=== PATIENT | female | born 1970 | race African-American/Black ===

== ENCOUNTER 2016-04-02 12:35 | Emergency (ER) | payer SELFPAY ==
[~2016-04-02] VITALS: Ht 154.9 cm; Wt 73.0 kg
[~2016-04-02 12:35] MED LIST: IBUP-1027 PO; IBUP-1060 PO; IBUP200T43 PO; LEVO500T38 PO; OMEP20TA PO; OXYC-323 PO; POT25TAB PO; PROC5TAB14 PO; [UNRECOGNIZED DRUG - CODE] PO
[2016-04-02 13:22] LABS: BASO % 1 % (0-3); EOS % 2 % (0-3); HEMATOCRIT 36.8 % (36.0-47.0); HEMOGLOBIN 12.2 g/dL (12.0-15.5); LYMPH # 1.6 x10^3/uL (1.0-4.8); LYMPH % 32 % (24-48); MEAN CORPUSCULAR HEMOGLOBIN 31 pg (25-35); MEAN CORPUSCULAR HGB CONC 33 g/dL (31-37); MEAN CORPUSCULAR VOLUME 92 fL (79-100); MONO % 7 % (0-9); NEUT % 58 % (31-73); PLATELET COUNT 325 x10^3/uL (140-400); RED BLOOD COUNT 3.99 x10^6/uL (3.50-5.40); RED CELL DISTRIBUTION WIDTH 15.8 % (11.5-14.5); WHITE BLOOD COUNT 5.1 x10^3/uL (4.0-11.0)
--- NOTE | 2016-04-02 13:23 | EKG ---
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
[2016-04-02 13:33] LABS: CREATININE 0.6 mg/dL (0.6-1.0); GFR 131.4; POTASSIUM 4.1 mmol/L (3.5-5.1)
--- NOTE | 2016-04-02 13:36 | RAD ---
Indication: Chest pain. Time of exam 1320 hours. No prior studies are available for comparison. FINDINGS: The heart size is normal. The lungs are clear. No pleural effusion or pneumothorax is identified. The pulmonary vascularity is normal. IMPRESSION: No acute abnormality detected.
[2016-04-02 13:39] LABS: ALBUMIN 3.9 g/dL (3.4-5.0); DIRECT BILIRUBIN 0.1 mg/dL (0.0-0.2); TOTAL BILIRUBIN 0.4 mg/dL (0.2-1.0); TOTAL PROTEIN 8.2 g/dL (6.4-8.2)
[2016-04-02 13:48] VITALS: BP 167/87
[2016-04-02] MEDS ORDERED: HYDR-2666 PO (13:54)
--- NOTE | 2016-04-02 13:54 | PHYS DOC ---
Past Medical History Past Medical History: No Pertinent History Past Surgical History: Other Additional Past Surgical Histo: breast , fibroid removed Alcohol Use: None Drug Use: None Adult General Chief Complaint Chief Complaint: CHEST WALL PAIN HPI HPI 46-year-old female presenting the emergency department today with left-sided chest pain for 4 days. The pain is intermittent without alleviating or exacerbating factors. She denies nausea vomiting or diaphoresis. She denies any cough congestion. She describes the pain as a cramping sensation. She denies hemoptysis, unilateral leg swelling. She denies recent plane ride. She denies personal or family history of DVT. She denies diabetes hypertension hyperlipidemia or smoking history. Review of Systems Review of Systems ROS negative for nausea vomiting fevers chills or cough. All other review of systems is negative unless otherwise noted in history of present illness. Current Medications Current Medications Current Medications Medications (Trade) Dose Ordered Sig/Rios Start Time Stop Time Status Last Admin Dose Admin Acetaminophen/ Hydrocodone Bitart (Lortab 5/325) 2 tab 1X ONCE 04/02/16 14:00 04/02/16 14:01 DC 04/02/16 13:55 2 TAB Allergies Allergies Allergies Coded Allergies Type Severity Reaction Last Updated Verified No Known Drug Allergies 11/09/13 No Physical Exam Physical Exam Constitutional: Well developed, well nourished, no acute distress, non-toxic appearance. HENT: Normocephalic, atraumatic, bilateral external ears normal, oropharynx moist, no oral exudates, nose normal. [] Eyes: PERRLA, EOMI, conjunctiva normal, no discharge. Neck: Normal range of motion, no tenderness, supple, no stridor. [] Cardiovascular:Heart rate regular rhythm, no murmur Lungs & Thorax: Bilateral breath sounds clear to auscultation [] Abdomen: Bowel sounds normal, soft, no tenderness, no masses, no pulsatile masses. Skin: Warm, dry, no erythema, no rash. [] Back: No tenderness, no CVA tenderness. [] Extremities: No tenderness, no cyanosis, no clubbing, ROM intact, no edema. Neurologic: Alert and oriented X 3, normal motor function, normal sensory function, no focal deficits noted. Psychologic: Affect normal, judgement normal, mood normal. [] Current Patient Data Vital Signs Vital Signs Date Time Temp Pulse Resp B/P Pulse Ox O2 Delivery O2 Flow Rate FiO2 04/02/16 13:55 18 100 Room Air 04/02/16 13:48 64 167/87 04/02/16 12:49 98.7 98.7 Lab Values Laboratory Tests Test 04/02/16 13:00 White Blood Count 5.1x10^3/uL (4.0-11.0) Red Blood Count 3.99x10^6/uL (3.50-5.40) Hemoglobin 12.2g/dL (12.0-15.5) Hematocrit 36.8% (36.0-47.0) Mean Corpuscular Volume 92fL (79-100) Mean Corpuscular Hemoglobin 31pg (25-35) Mean Corpuscular Hemoglobin Concent 33g/dL (31-37) Red Cell Distribution Width 15.8% (11.5-14.5) H Platelet Count 325x10^3/uL (140-400) Neutrophils (%) (Auto) 58% (31-73) Lymphocytes (%) (Auto) 32% (24-48) Monocytes (%) (Auto) 7% (0-9) Eosinophils (%) (Auto) 2% (0-3) Basophils (%) (Auto) 1% (0-3) Neutrophils # (Auto) 3.0x10^3uL (1.8-7.7) Lymphocytes # (Auto) 1.6x10^3/uL (1.0-4.8) Monocytes # (Auto) 0.4x10^3/uL (0.0-1.1) Eosinophils # (Auto) 0.1x10^3/uL (0.0-0.7) Basophils # (Auto) 0.0x10^3/uL (0.0-0.2) Sodium Level 138mmol/L (136-145) Potassium Level 4.1mmol/L (3.5-5.1) Chloride Level 102mmol/L (98-107) Carbon Dioxide Level 26mmol/L (21-32) Anion Gap 10 (6-14) Blood Urea Nitrogen 12mg/dL (7-20) Creatinine 0.6mg/dL (0.6-1.0) Estimated GFR (Cockcroft-Gault) 131.4 Glucose Level 85mg/dL (70-99) Calcium Level 9.0mg/dL (8.5-10.1) Total Bilirubin 0.4mg/dL (0.2-1.0) Direct Bilirubin 0.1mg/dL (0.0-0.2) Aspartate Amino Transferase (AST) 23U/L (15-37) Alanine Aminotransferase (ALT) 25U/L (14-59) Alkaline Phosphatase 78U/L (46-116) Troponin I Quantitative < 0.017ng/mL (0.000-0.055) EI-Nrk-N-Type Natriuretic Peptide 69pg/mL (0-124) Total Protein 8.2g/dL (6.4-8.2) Albumin 3.9g/dL (3.4-5.0) Lipase 111U/L (73-393) Laboratory Tests 04/02/16 13:00 Laboratory Tests 04/02/16 13:00 EKG EKG [] Sinus rhythm with a regular rate. [place] is normal. Intervals normal. Mild isolated less than 1 mm repolarization in lead V2 . Not suggestive of acute ischemia. Radiology/Procedures Radiology/Procedures [] Chest x-ray unremarkable. Course & Med Decision Making Course & Med Decision Making Pertinent Labs and Imaging studies reviewed. (See chart for details) [] 46-year-old female presenting to the emergency department today with chest pain for greater than 4 days. EKG was unremarkable. Vital signs showed mild hypertension. Physical exam unremarkable. Blood work obtained which showed negative troponin. Chemistry panel unremarkable. CBC normal. Patient is provided oral pain medications in the emergency department and subsequently discharged home to follow up with her PCP in 2-3 days. Heart score 0. Dragon Disclaimer Dragon Disclaimer This electronic medical record was generated, in whole or in part, using a voice recognition dictation system. Departure Departure Impression: Primary Impression: Chest pain Disposition: 01 HOME, SELF-CARE Condition: STABLE Referrals: NO PCP (PCP) JOSE INGRAM MD Patient Instructions: Chest Pain (Nonspecific) Additional Instructions: Thank you for allowing us to participate in your care today. Followup with your primary care physician in 3 days if your symptoms do not improve. If you do not have a primary care provider you can ask for a list of our primary care providers. Return to the emergency department you have any new or concerning findings. This should be evaluated by the primary care physician and any necessary consulting services for continued management within a few days after discharge. Return to emergency room if you have any new or concerning symptoms including but not limited to fever, chills, nausea, vomiting, intractable pain, any new rashes, chest pain, shortness of air, uncontrolled bleeding, difficulty breathing, and/or vision loss. Scripts Hydrocodone Bit/Acetaminophen (Hydrocodone-Apap 5-325 )1 Each Tablet1 Tab PO PRN Q6HRS PRN PAIN #15 TAB Be careful as this medication may cause you to be drowsy or tired. Do not drive on this medication. Prov:LAURA AJ MD 04/02/16 LAURA AJ MD Apr 02, 2016 13:54
[2016-04-02] MEDS ORDERED: HYDROCODONE/APAP 5/325MG TABLET. PO ONE (14:00)
== END 2016-04-02 14:02 | disposition home or self-care (01) ==
LOC: ER 12:35
DX: R07.9 Chest pain, unspecified (principal)
CPT/HCPCS: 36415; 71010; 80048; 80076; 83690; 83880; 84484; 85027; 93005; 99285-25

== ENCOUNTER 2016-06-29 11:44 | Emergency (ER) | payer SELFPAY ==
[~2016-06-29] VITALS: Ht 154.9 cm; Wt 72.6 kg
[~2016-06-29 11:44] MED LIST changes: +HYDR-2666 PO
[2016-06-29 12:00] VITALS: BP 143/78
--- NOTE | 2016-06-29 12:56 | PHYS DOC ---
Past Medical History Past Medical History: No Pertinent History Past Surgical History: Other Additional Past Surgical Histo: breast , fibroid removed Alcohol Use: None Drug Use: None Adult General Chief Complaint Chief Complaint: UPPER EXTREMITY PAIN HPI HPI Patient is a 46 year old female presents emergency Department today with complaint of intermittent tingling in her right arm in a stocking-like distribution for the past 2 weeks. Patient reports her is no provocative maneuvers. Patient is left-hand dominant. Patient denies any previous history of neck or shoulder injuries. She denies any history of neuromuscular diseases or diabetes. 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 She denies being seen by another provider over the past 2 weeks for this complaint. Review of Systems Review of Systems Constitutional: Denies fever or chills [] Eyes: Denies change in visual acuity, redness, or eye pain [] HENT: Denies nasal congestion or sore throat [] Respiratory: Denies cough or shortness of breath [] Cardiovascular: No additional information not addressed in HPI [] GI: Denies abdominal pain, nausea, vomiting, bloody stools or diarrhea [] : Denies dysuria or hematuria [] Musculoskeletal: Denies back pain or joint pain [] Integument: Denies rash or skin lesions [] Neurologic: Denies headache, focal weakness or sensory changes [] Endocrine: Denies polyuria or polydipsia [] Allergies Allergies Allergies Coded Allergies Type Severity Reaction Last Updated Verified No Known Drug Allergies 11/09/13 No Physical Exam Physical Exam Constitutional: Well developed, well nourished, no acute distress, non-toxic appearance. [] HENT: Normocephalic, atraumatic, bilateral external ears normal, oropharynx moist, no oral exudates, nose normal. [] Eyes: PERRLA, EOMI, conjunctiva normal, no discharge. [] Neck: Normal range of motion, no tenderness, supple, no stridor. Cardiovascular:Heart rate regular rhythm, no murmur [] Lungs & Thorax: Bilateral breath sounds clear to auscultation [] Abdomen: Bowel sounds normal, soft, no tenderness, no masses, no pulsatile masses. [] Skin: Warm, dry, no erythema, no rash. [] Back: No tenderness, no CVA tenderness. [] Extremities: Right arm is normal in appearance without any dystrophic changes. Skin is warm and dry. Muscle tone is good. Strength is equal to left arm. Patient has a strong radial pulse. Capillary refill is less than 2 seconds. Patient maintains good 2 point discrimination. Neurologic: Alert and oriented X 3, normal motor function, normal sensory function, no focal deficits noted. [] Psychologic: Affect normal, judgement normal, mood normal. [] Current Patient Data Vital Signs Vital Signs Date Time Temp Pulse Resp B/P Pulse Ox O2 Delivery O2 Flow Rate FiO2 06/29/16 12:00 98.3 56 16 100 Room Air 98.3 EKG EKG [] Radiology/Procedures Radiology/Procedures [facility] [address] [place], [place] [id number] IMAGING REPORT Signed PATIENT: PHILIPP FARRELL ACCOUNT: [id number] : 1970 LOCATION: ER AGE: 46 SEX: F EXAM STATUS: REG ER ORD. PHYSICIAN: JAY BRUNER REASON: intermittent RIGHT arm paresthesias PROCEDURE: CERVICAL SPINE 2-3V Cervical spine, 3 views, 06/29/2016: History: Right arm pain There is straightening of the normal cervical lordosis. There is mild disc space narrowing and moderate marginal spurring at C5-6 and C6-7. The cervical vertebral heights are well-maintained. No fracture or dislocation is identified. The prevertebral soft tissues are unremarkable. IMPRESSION: 1. Moderate degenerative disc disease at C5-6 and C6-7. 2. No acute bony abnormality is detected. DICTATED and SIGNED BY: RODNEY QUINN MD DATE: 06/29/16 3345 CC: JAY BRUNER; NO PCP; NON,STAFF ~ ] Course & Med Decision Making Course & Med Decision Making Pertinent Labs and Imaging studies reviewed. (See chart for details) [] Dragon Disclaimer Dragon Disclaimer This electronic medical record was generated, in whole or in part, using a voice recognition dictation system. Departure Departure Impression: Primary Impression: Paresthesia Disposition: 01 HOME, SELF-CARE Condition: GOOD Referrals: NO PCP (PCP) RILEY JOHNSON MD Patient Instructions: Paresthesia, [id number] Additional Instructions: 1. The x-rays of your neck today shows some mild degeneration of the disc of your neck, predominantly in your lower neck. This may be a source of your symptoms. It will be important for you to follow up with a neurologist for further evaluation/testing. 2. Review the discharge instructions provided for self-care and reasons to return to the emergency department. 3. Take the medication as prescribed. 4. Be sure to call the neurologist number listed in this paperwork today or tomorrow to schedule follow-up appointment. Scripts Gabapentin 100 Mg [id number] Mg PO TID #30 CAP Prov:JAY BRUNER 06/29/16 JAY BRUNER Jun 29, 2016 12:56
--- NOTE | 2016-06-29 13:29 | RAD ---
Cervical spine, 3 views, 06/29/2016: History: Right arm pain There is straightening of the normal cervical lordosis. There is mild disc space narrowing and moderate marginal spurring at C5-6 and C6-7. The cervical vertebral heights are well-maintained. No fracture or dislocation is identified. The prevertebral soft tissues are unremarkable. IMPRESSION: 1. Moderate degenerative disc disease at C5-6 and C6-7. 2. No acute bony abnormality is detected.
[2016-06-29] MEDS ORDERED: GABA-585 PO (13:37)
== END 2016-06-29 13:47 | disposition home or self-care (01) ==
LOC: ER 11:44
DX: R20.2 Paresthesia of skin (principal); M79.602 Pain in left arm; M79.601 Pain in right arm; M50.322 Other cervical disc degeneration at C5-C6 level; M50.323 Other cervical disc degeneration at C6-C7 level
CPT/HCPCS: 72040; 99284

== ENCOUNTER → 2017-08-11 | Outpatient (CLI) | payer BC ==
[2017-08-11 14:58] LABS: ADD MAN DIFF? NO
[2017-08-11 15:00] LABS: BASO % 1 % (0-3); EOS # 0.1 x10^3/uL (0.0-0.7); EOS % 2 % (0-3); HEMOGLOBIN 11.9 g/dL (12.0-15.5); LYMPH # 1.6 x10^3/uL (1.0-4.8); LYMPH % 29 % (24-48); MEAN CORPUSCULAR HEMOGLOBIN 33 pg (25-35); MEAN CORPUSCULAR HGB CONC 35 g/dL (31-37); MEAN CORPUSCULAR VOLUME 95 fL (79-100); MONO # 0.5 x10^3/uL (0.0-1.1); MONO % 9 % (0-9); NEUT # 3.3 x10^3uL (1.8-7.7); NEUT % 61 % (31-73); PLATELET COUNT 276 x10^3/uL (140-400); RED BLOOD COUNT 3.57 x10^6/uL (3.50-5.40); RED CELL DISTRIBUTION WIDTH 14.3 % (11.5-14.5); WHITE BLOOD COUNT 5.4 x10^3/uL (4.0-11.0)
[2017-08-11 15:03] LABS: BILIRUBIN,URINE NEGATIVE (NEG); CLARITY,URINE CLOUDY; COLOR,URINE YELLOW; GLUCOSE,URINE NEGATIVE (NEG); NITRITE,URINE NEGATIVE (NEG); PROTEIN,URINE NEGATIVE (NEG-TRACE); UROBILINOGEN,URINE 0.2 mg/dL (0.2 mg/dL)
[2017-08-11 15:15] LABS: BACTERIA,URINE 0 /HPF (0-FEW); RBC,URINE TNTC /HPF (0-2); SQUAMOUS EPITHELIAL CELL,UR MOD /LPF; WBC,URINE 0 /HPF (0-4)
[2017-08-11 15:22] LABS: ALBUMIN 3.3 g/dL (3.4-5.0); ALBUMIN/GLOBULIN RATIO 0.8 (1.0-1.7); ALK PHOS 87 U/L (46-116); ALT (SGPT) 22 U/L (14-59); ANION GAP 9 (6-14); AST (SGOT) 19 U/L (15-37); BLOOD UREA NITROGEN 14 mg/dL (7-20); BUN/CREATININE RATIO 23 (6-20); CALCIUM 8.2 mg/dL (8.5-10.1); CARBON DIOXIDE 27 mmol/L (21-32); CHLORIDE 106 mmol/L (98-107); CREATININE 0.6 mg/dL (0.6-1.0); GFR 130.8; GLUCOSE 92 mg/dL (70-99); POTASSIUM 3.6 mmol/L (3.5-5.1); SODIUM 142 mmol/L (136-145); TOTAL BILIRUBIN 0.3 mg/dL (0.2-1.0); TOTAL PROTEIN 7.5 g/dL (6.4-8.2)
== END | disposition home or self-care (01) ==
LOC: SURGPAT 14:12
DX: D64.9 Anemia, unspecified (principal); D25.9 Leiomyoma of uterus, unspecified
CPT/HCPCS: 36415; 80053; 81001; 85025; 87086

== ENCOUNTER 2017-08-18 06:03 | Inpatient (IN) | payer BC ==
[2017-08-18] MEDS ORDERED: VASOPRESSIN 20 UNIT/ML VIAL. (06:21)
[2017-08-18] MEDS ORDERED: BUPIVACAINE-EPI 0.25%-1:200000 50 ML VIAL. (06:21)
[2017-08-18 06:53] LABS: NEG OBC UR NEG; POS OBC UR POS; U PREG PATIENT NEGATIVE (NEG)
[2017-08-18] MEDS: IV RINGERS,LACTATED 1000ML 1,000 ML IV (06:55)
[2017-08-18] MEDS ORDERED: fentaNYL PF VIAL 100 MCG/2 ML VIAL IV (07:00)
[2017-08-18] MEDS ORDERED: ONDANSETRON PF 4 MG/2 ML VIAL. IV ×2 (07:00→09:30)
[2017-08-18] MEDS ORDERED: LIDOCAINE 1% PF 2 ML VIAL. ID (07:00)
[2017-08-18] MEDS ORDERED: DEXAMETHASONE SOD PHOS 20 MG/5 ML VIAL. (07:20)
[2017-08-18] MEDS ORDERED: LIDOCAINE 2% PF Vial for OR 5 ML VIAL. (07:20)
[2017-08-18] MEDS ORDERED: PROPOFOL 20 ML IV (07:20)
[2017-08-18] MEDS ORDERED: fentaNYL PF VIAL 100 MCG/2 ML VIAL ×3 (07:20→10:14)
[2017-08-18] MEDS ORDERED: MIDAZOLAM HCL/PF 2 MG/2 ML VIAL. (07:20)
[2017-08-18] MEDS ORDERED: ONDANSETRON PF 4 MG/2 ML VIAL. (07:20)
[2017-08-18] MEDS ORDERED: ROCURONIUM 50 MG/5 ML VIAL. (07:20)
[2017-08-18] MEDS ORDERED: SEVOFLURANE 61 TO 120 MINUTES. IH (08:12)
[2017-08-18] MEDS ORDERED: ESMOLOL 100 MG/10 ML VIAL. IV (08:12)
[2017-08-18] MEDS ORDERED: NEOSTIGMINE METHYLSULFATE 5 MG/5 ML SYRINGE. (09:02)
[2017-08-18] MEDS ORDERED: GLYCOPYRROLATE 1 MG/5 ML VIAL. (09:03)
[2017-08-18] MEDS ORDERED: KETOROLAC 30 MG/ML INJ FOR OR. INJ (09:19)
[2017-08-18] MEDS ORDERED: 0.9 % SODIUM CHLORIDE 10 ML DISP.SYRIN. IV (09:30)
[2017-08-18] MEDS ORDERED: diphenhydrAMINE 50 MG/ML VIAL IV (09:30)
[2017-08-18] MEDS ORDERED: MAGNESIUM HYDROXIDE 2,400 MG/30 ML ORAL.SUSP. PO (09:30)
[2017-08-18] MEDS ORDERED: NALOXONE 0.4 MG/ML VIAL. IV (09:30)
[2017-08-18] MEDS ORDERED: diphenhydrAMINE HCL 25 MG CAPSULE PO (09:30)
[2017-08-18] MEDS ORDERED: CALCIUM CARBONATE 500 MG TAB.CHEW PO (09:30)
[2017-08-18] MEDS ORDERED: MAG HYDROX/ALUMINUM HYD/SIMETH 30 ML ORAL.SUSP PO (09:30)
[2017-08-18] MEDS ORDERED: MORPHINE SULFATE 2 MG/ML DISP.SYRIN. IV (09:30)
[2017-08-18] MEDS ORDERED: PROCHLORPERAZINE 10 MG/2 ML VIAL. (09:42)
[2017-08-18] MEDS: fentaNYL PF VIAL 100 MCG/2 ML VIAL IV ×4 (09:54→10:35)
[2017-08-18] MEDS: PROCHLORPERAZINE 10 MG/2 ML VIAL. IV (09:55)
[2017-08-18] MEDS ORDERED: MORPHINE SULFATE 4 MG/ML DISP.SYRIN. (09:56)
[2017-08-18] MEDS: MORPHINE SULFATE 2 MG/ML DISP.SYRIN. IV ×4 (10:00→10:41)
[2017-08-18] MEDS: KETOROLAC 30 MG/ML INJ. IV ×2 (15:22→22:50)
[2017-08-18] MEDS: oxyCODONE/APAP 5/325 1 TAB TABLET PO ×2 (18:21→22:50)
[2017-08-19 04:51] LABS: HEMATOCRIT 31.3 % (36.0-47.0)
[2017-08-19] MEDS: KETOROLAC 30 MG/ML INJ. IV (05:28)
[2017-08-19] MEDS: oxyCODONE/APAP 5/325 1 TAB TABLET PO ×2 (05:29→20:01)
[2017-08-19 05:41] LABS: ANION GAP 5 (6-14); BLOOD UREA NITROGEN 8 mg/dL (7-20); CALCIUM 7.5 mg/dL (8.5-10.1); CARBON DIOXIDE 27 mmol/L (21-32); CHLORIDE 102 mmol/L (98-107); CREATININE 0.6 mg/dL (0.6-1.0); GFR 130.8; GLUCOSE 129 mg/dL (70-99); POTASSIUM 3.9 mmol/L (3.5-5.1); SODIUM 134 mmol/L (136-145)
[2017-08-19] MEDS: SIMETHICONE 80 MG TAB.CHEW PO ×2 (12:00→21:35)
[2017-08-19] MEDS: LACTULOSE 20 GM/30 ML SOLUTION. PO (14:01)
[2017-08-19] MEDS: HYDROcodone/APAP 5/325MG 1 TAB TABLET PO (14:01)
[2017-08-19] MEDS: IBUPROFEN 800 MG TABLET. PO (21:55)
[2017-08-19] MEDS: ZOLPIDEM 5 MG TABLET. PO (21:55)
[2017-08-20] MEDS: HYDROcodone/APAP 5/325MG 1 TAB TABLET PO ×2 (00:03→06:18)
== END 2017-08-20 15:05 | disposition home or self-care (01) | DRG 743 ==
LOC: OPSVCIP 06:03 → 3 NORTH 11:22
PROC: 0UT90ZZ Resection of Uterus, Open Approach (ICD-10-PCS; principal; 2017-08-18 07:30)
PROC: 0UT70ZZ Resection of Bilateral Fallopian Tubes, Open Approach (ICD-10-PCS; 2017-08-18 07:30)
DX: D25.9 Leiomyoma of uterus, unspecified (principal); N92.0 Excessive and frequent menstruation with regular cycle; D64.9 Anemia, unspecified
CPT/HCPCS: 36415; 80048; 81025; 85014; 86850; 86900; 86901; 88307; A7015; J0690; J0780; J1100; J1885; J2250; J2270; J2405; J2704; J2710; J3010; J3490; J7120

== ENCOUNTER 2018-09-08 18:26 | Emergency (ER) | payer BC ==
[~2018-09-08] VITALS: Ht 154.9 cm; Wt 77.1 kg
[~2018-09-08 18:26] MED LIST changes: +GABA-585 PO; -HYDR-2666 PO; +HYDR-2761 PO; +HYDR-3164 PO; -IBUP200T43 PO; +IBUP200T44 PO; -LEVO500T38 PO; +LEVO500T59 PO; +METR500T PO; +MULT1TAB52 PO; -OMEP20TA PO; +OMEP20TA8 PO; +ONDA4TAB10 SL; -OXYC-323 PO; +OXYC1TAB15 PO
[2018-09-08 18:39] VITALS: BP 112/74
[2018-09-08] MEDS ORDERED: AMOX1TAB61 PO (19:02)
--- NOTE | 2018-09-08 19:02 | PHYS DOC ---
Past Medical History Past Medical History: No Pertinent History (RAO VUONG APRN) Past Surgical History: Hysterectomy, Other Additional Past Surgical Histo: breast , fibroid removed (RAO VUONG APRN) Alcohol Use: None Drug Use: None (RAO VUONG APRN) Adult General Chief Complaint Chief Complaint: ANIMAL BITE HPI HPI Patient is a 48 year old female that presents with 6 puncture wounds from a [place] canela happened 1 hour prior to arrival. Animal control was on scene and report has been completed. Rates her pain as 0 out of 10 at this time. Dog was the neighbor dog and they stated up-to-date on his shots. The dog is getting the observation by animal control. (RAO VUONG APRN) Review of Systems Review of Systems Constitutional: Denies fever or chills [] Eyes: Denies change in visual acuity, redness, or eye pain [] HENT: Denies nasal congestion or sore throat [] Respiratory: Denies cough or shortness of breath [] Cardiovascular: No additional information not addressed in HPI [] GI: Denies abdominal pain, nausea, vomiting, bloody stools or diarrhea [] : Denies dysuria or hematuria [] Musculoskeletal: Denies back pain or joint pain [] Integument: Has puncture wounds to left knee (2), and right lower leg (4). Neurologic: Denies headache, focal weakness or sensory changes [] Endocrine: Denies polyuria or polydipsia [] Complete systems were reviewed and found to be within normal limits, except as documented in this note. (RAO VUONG APRN) Current Medications Current Medications Current Medications Medications (Trade) Dose Ordered Sig/Rios Start Time Stop Time Status Last Admin Dose Admin Diphtheria/ Tetanus/Acell Pertussis (Boostrix) 0.5 ml ONCE ONCE 09/08/18 19:15 09/08/18 19:16 DC 09/08/18 19:22 0.5 ML Neomycin/ Polymyxin/ Bacitracin (Triple Antibiotic Ointment) 3 pkt 1X ONCE 09/08/18 19:15 09/08/18 19:16 DC 09/08/18 19:22 3 PKT (LEANDRO RAMOS MD) Allergies Allergies Allergies Coded Allergies Type Severity Reaction Last Updated Verified No Known Drug Allergies 08/18/17 No (LEANDRO RAMOS MD) Physical Exam Physical Exam Constitutional: Well developed, well nourished, no acute distress, non-toxic appearance. [] HENT: Normocephalic, atraumatic, bilateral external ears normal, oropharynx moist, no oral exudates, nose normal. [] Eyes: PERRLA, EOMI, conjunctiva normal, no discharge. [] Neck: Normal range of motion, no tenderness, supple, no stridor. [] Cardiovascular:Heart rate regular rhythm, no murmur [] Lungs & Thorax: Bilateral breath sounds clear to auscultation [] Skin: The patient has puncture wounds to left leg (2), 0.25 cm puncture wounds, right lower leg (0.5 cm, 0.25 cm, 0.5 cm, and 0.25 cm). Back: No tenderness, no CVA tenderness. [] Extremities: No tenderness, no cyanosis, no clubbing, ROM intact, no edema. [] Neurologic: Alert and oriented X 3, normal motor function, normal sensory function, no focal deficits noted. [] Psychologic: Affect normal, judgement normal, mood normal. [] (RAO VUONG APRN) Current Patient Data Vital Signs Vital Signs Date Time Temp Pulse Resp B/P (MAP) Pulse Ox O2 Delivery O2 Flow Rate FiO2 09/08/18 18:39 98.7 108 18 112/74 (87) 97 Room Air 98.7 (LEANDRO RAMOS MD) EKG EKG [] (RAO VUONG APRN) Radiology/Procedures Radiology/Procedures Punctures wounds were washed with betadine and then irrigated with 300 mL of copious saline at high pressure. (RAO VUONG APRN) Course & Med Decision Making Course & Med Decision Making Pertinent Labs and Imaging studies reviewed. (See chart for details) Discussed with patient the risk of infection if suturing wound. Will irrigate wounds, and place on Augmentin and then d/c home. Will also update Tetanus shot. Discussed rabies shot and how with the dog's shots likely updated will choose observation. If animal control states the dog gets rabies will have patient come back for rabies vaccine. Patient is agreeable with plan. (RAO VUONG APRN) Course & Med Decision Making Staff Physician Addendum: I was working in the ER during the course of this patient's visit. I was available for consultation as needed, but I was not directly involved in the care of this patient. (LEANDRO RAMOS MD) Dragon Disclaimer Dragon Disclaimer This electronic medical record was generated, in whole or in part, using a voice recognition dictation system. (RAO VUONG APRN) Departure Departure Impression: Primary Impression: Animal bite Disposition: HOME, SELF-CARE Condition: STABLE Referrals: ERWIN SPENCER MD (PCP) Patient Instructions: Animal Bite Additional Instructions: Thank you for visiting [facility]. We appreciate you trusting us with your care. If any additional problems come up don't hesitate to return to visit us. Please follow up with your primary care provider so they can plan additional care if needed and know about the problem that you had. If symptoms worsen come back to the Emergency Department. Any concerning symptoms that start such as chest pain, shortness of air, weakness or numbness on one side of the body, running high fevers or any other concerning symptoms return to the ER. You have been prescribed an antibiotic today to help fight your potential infection. Please take all of the antibiotic as directed. If signs and symptoms of infected start to present please return to ER. Scripts Amoxicillin/Potassium Clav (AUGMENTIN 875-125 TABLET) 1 Each Tablet 1 TAB PO BID for 7 Days, #14 TAB Prov: RAO VUONG APRN 09/08/18 RAO VUONG APRN Sep 08, 2018 19:02 LEANDRO RAMOS MD Sep 11, 2018 19:41
[2018-09-08] MEDS ORDERED: NEOMY/BACITR/POLYMYXIN OINT PACKET. TP ONE (19:15)
[2018-09-08] MEDS ORDERED: DIPHTH,PERTUSS(ACELL),TET TOX 0.5 ML DISP.SYRIN. VAX IM ONE (19:15)
== END 2018-09-08 19:32 | disposition home or self-care (01) ==
LOC: ER 18:26
DX: S81.032A Puncture wound without foreign body, left knee, initial encounter (principal); S81.831A Puncture wound without foreign body, right lower leg, initial encounter; Z90.710 Acquired absence of both cervix and uterus; W54.0XXA Bitten by dog, initial encounter; Y93.89 Activity, other specified; Y92.89 Other specified places as the place of occurrence of the external cause; Y99.8 Other external cause status
CPT/HCPCS: 90471; 90715; 99283